=== PATIENT | female | born 1945 | race Hispanic/Latino ===

== ENCOUNTER → 2017-07-09 | Outpatient (CLI) | payer MEDICARE | END | disposition home or self-care (01) | LOC: OIH 10:25 | PROVIDERS: ATTEND Nurse Practitioner Family | DX: R51 Headache (principal) | CPT/HCPCS: 70450 ==

== ENCOUNTER 2018-01-14 12:51 | Inpatient (IN) | payer MEDICARE ==
[~2018-01-14] VITALS: Ht 147.3 cm; Wt 84.9 kg
[2018-01-14 13:39] LABS: BASOPHILS % (AUTO) 0.5 % (0.0-5.0); EOSINOPHILS % (AUTO) 0.9 % (0.0-8.0); LYMPHOCYTES % (AUTO) 11.7 % (21.0-51.0); MEAN CORPUSCULAR HEMOGLOBIN 27.1 pg (27.0-33.0); MEAN CORPUSCULAR HGB CONC 32.4 g/dL (32.0-36.0); MEAN CORPUSCULAR VOLUME 83.6 fL (79-99); NEUTROPHILS % (AUTO) 81.9 % (40.0-77.0); PLATELET COUNT (AUTO) 326 K/uL (130-400); RED BLOOD CELL COUNT(AUTO) 4.79 MIL/uL (4.00-5.50); RED CELL DISTRIBUTION WIDTH 13.8 % (11.0-15.5); WHITE BLOOD COUNT (AUTO) 16.4 K/uL (4.8-10.8)
[2018-01-14 13:46] LABS: CARBON DIOXIDE 29 mmol/L (21-32); CHLORIDE 98 mmol/L (101-111); CREATININE 0.7 mg/dL (0.5-1.5); GLOMERULAR FILTR. RATE CALC 88 mL/min (>60); GLUCOSE,RANDOM 116 mg/dL (70-105); POTASSIUM 3.4 mmol/L (3.5-5.1); SODIUM SERUM 137 mmol/L (136-145); UREA NITROGEN, BLOOD 9 mg/dL (7-18)
[2018-01-14 13:51] LABS: APPEARANCE,URINE Clear (CLEAR); BILIRUBIN,URINE Negative (NEGATIVE); COLOR,URINE Yellow (YELLOW); GLUCOSE, URINE (UA) Negative (NEGATIVE); KETONES,URINE 15 mg/dL (NEGATIVE); LEUKOCYTE ESTERASE ,URINE Negative (NEGATIVE); NITRATE,URINE Negative (NEGATIVE); OCCULT BLOOD,URINE Moderate (NEGATIVE); PH,URINE 6.5 (5.0-8.0); PROTEIN,URINE Negative (NEGATIVE)
[2018-01-14] MEDS ORDERED: SODIUM CHLORIDE 0.9% 1000ML 1,000 ML IV ONE ×2 (13:54→15:05)
[2018-01-14 13:57] LABS: ALANINE AMINOTRANSFERASE 26 U/L (12-78); ASPARTATE AMINOTRANSFERASE 13 U/L (10-37); BILIRUBIN,TOTAL 0.5 mg/dL (0.2-1.0); CREATINE KINASE, TOTAL 28 U/L (21-232); MYOGLOBIN 20 ng/mL (10-92); TOTAL PROTEIN, SERUM 7.9 g/dL (6.0-8.3); TROPONIN I < 0.04 ng/mL (0.00-0.06)
[2018-01-14] MEDS ORDERED: ACETAMINOPHEN 325 MG TAB ONE (13:58)
[2018-01-14 14:04] LABS: INR 1.09 (0.85-1.15); PARTIAL THROMBOPLASTIN TIME 36.1 SEC (26.3-35.5); PROTHROMBIN TIME 11.4 SEC (9.6-11.6)
[2018-01-14 14:07] LABS: BACTERIA,URINE None Seen /HPF (None Seen); SQUAMOUS EPITHELIAL CELL,UR Few /HPF (0-2); WBC,URINE None Seen /HPF (0-1)
[2018-01-14] MEDS ORDERED: IOHEXOL-350 75 ML VIAL IV ONE (14:19)
[2018-01-14] MEDS ORDERED: ONDANSETRON HCL 4 MG/2 ML VIAL ONE (15:05)
[2018-01-14] MEDS ORDERED: MORPHINE SULFATE 2 MG/ML 1ML SYG ONE ×2 (15:06→15:11)
[2018-01-14] MEDS ORDERED: ZOSYN 3.375GM+NS 50ML 50 ML IV ONE (15:28)
[2018-01-14] MEDS ORDERED: SODIUM CHLORIDE 0.9% 50 ML IV ONE (15:28)
[2018-01-14] MEDS ORDERED: ONDANSETRON HCL 4 MG/2 ML VIAL IV PRN (16:00)
[2018-01-14] MEDS ORDERED: ACETAMINOPHEN 650 MG SUPPOSITORY RC PRN (16:00)
[2018-01-14 18:56] VITALS: BP 111/56
[2018-01-14 19:00] VITALS: BP 109/61
[2018-01-14] MEDS ORDERED: TRAM50TA4 PO (19:56)
[2018-01-14] MEDS ORDERED: CIPR-278 PO (19:56)
[2018-01-14] MEDS ORDERED: METR500T4 PO (19:56)
[2018-01-14] MEDS: SODIUM CHLORIDE 0.9% 1000ML 1,000 ML IV SCH (21:38)
[2018-01-14] MEDS: METRONIDAZOLE 500MG/100ML BAG 100 ML IV SCH (21:38)
[2018-01-14] MEDS: FAMOTIDINE/PF 20 MG/2 ML VIAL IV SCH (21:38)
[2018-01-14] MEDS: MORPHINE SULFATE 4 MG/1ML SYG IV PRN (22:26)
[2018-01-14] MEDS: ZOSYN 3.375GM+NS 50ML 50 ML IV SCH (22:29)
[2018-01-14 23:00] VITALS: BP 110/66
[2018-01-15 03:00] VITALS: BP 123/64
[2018-01-15] MEDS: METRONIDAZOLE 500MG/100ML BAG 100 ML IV SCH ×3 (04:51→22:04)
[2018-01-15] MEDS: MORPHINE SULFATE 4 MG/1ML SYG IV PRN ×2 (06:08→22:23)
[2018-01-15] MEDS: ZOSYN 3.375GM+NS 50ML 50 ML IV SCH ×2 (06:09→15:59)
[2018-01-15 06:16] LABS: HEMATOCRIT 34.5 % (36-48); MEAN CORPUSCULAR HEMOGLOBIN 28.1 pg (27.0-33.0); MEAN CORPUSCULAR HGB CONC 33.7 g/dL (32.0-36.0); MEAN CORPUSCULAR VOLUME 83.4 fL (79-99); PLATELET COUNT (AUTO) 346 K/uL (130-400); RED BLOOD CELL COUNT(AUTO) 4.14 MIL/uL (4.00-5.50); RED CELL DISTRIBUTION WIDTH 14.3 % (11.0-15.5); WHITE BLOOD COUNT (AUTO) 10.8 K/uL (4.8-10.8)
[2018-01-15 06:30] LABS: CREATININE 0.7 mg/dL (0.5-1.5); POTASSIUM 3.6 mmol/L (3.5-5.1)
[2018-01-15 07:30] VITALS: BP 108/57
[2018-01-15] MEDS: FAMOTIDINE/PF 20 MG/2 ML VIAL IV SCH ×2 (09:36→22:17)
[2018-01-15 11:00] VITALS: BP 113/56
[2018-01-15 16:00] VITALS: BP 123/53
[2018-01-15] MEDS: FLUCONAZOLE 200 MG/NS 100 ML 100 ML IV SCH (17:00)
[2018-01-15 19:12] VITALS: BP 109/56
[2018-01-15] MEDS: SODIUM CHLORIDE 0.9% 1000ML 1,000 ML IV SCH (22:04)
[2018-01-16 00:15] VITALS: BP 127/71
[2018-01-16] MEDS: ZOSYN 3.375GM+NS 50ML 50 ML IV SCH ×4 (01:05→22:49)
[2018-01-16 04:15] VITALS: BP 125/66
[2018-01-16] MEDS: METRONIDAZOLE 500MG/100ML BAG 100 ML IV SCH ×3 (05:57→22:49)
[2018-01-16 07:30] VITALS: BP 119/57
[2018-01-16] MEDS: FAMOTIDINE/PF 20 MG/2 ML VIAL IV SCH ×2 (08:25→22:49)
[2018-01-16 11:00] VITALS: BP 108/50
[2018-01-16] MEDS: FLUCONAZOLE 200 MG/NS 100 ML 100 ML IV SCH (15:45)
[2018-01-16 16:00] VITALS: BP 138/58
[2018-01-16] MEDS: SODIUM CHLORIDE 0.9% 1000ML 1,000 ML IV SCH (16:28)
[2018-01-16 19:30] VITALS: BP 109/57
[2018-01-16] MEDS: MORPHINE SULFATE 4 MG/1ML SYG IV PRN (22:50)
[2018-01-17 00:28] VITALS: BP 122/72
[2018-01-17 04:25] VITALS: BP 121/70
[2018-01-17] MEDS: ZOSYN 3.375GM+NS 50ML 50 ML IV SCH ×3 (05:11→21:30)
[2018-01-17] MEDS: METRONIDAZOLE 500MG/100ML BAG 100 ML IV SCH ×3 (05:11→20:48)
[2018-01-17] MEDS: SODIUM CHLORIDE 0.9% 1000ML 1,000 ML IV SCH (05:14)
[2018-01-17 05:20] LABS: HEMATOCRIT 38.9 % (36-48); MEAN CORPUSCULAR HEMOGLOBIN 27.4 pg (27.0-33.0); MEAN CORPUSCULAR HGB CONC 32.8 g/dL (32.0-36.0); MEAN CORPUSCULAR VOLUME 83.5 fL (79-99); PLATELET COUNT (AUTO) 426 K/uL (130-400); RED BLOOD CELL COUNT(AUTO) 4.66 MIL/uL (4.00-5.50); RED CELL DISTRIBUTION WIDTH 13.6 % (11.0-15.5); WHITE BLOOD COUNT (AUTO) 12.3 K/uL (4.8-10.8)
[2018-01-17 05:40] LABS: ALBUMIN 2.9 g/dL (3.5-5.0); BILIRUBIN,TOTAL 0.6 mg/dL (0.2-1.0); CREATININE 0.7 mg/dL (0.5-1.5); POTASSIUM 3.7 mmol/L (3.5-5.1); TOTAL PROTEIN, SERUM 7.6 g/dL (6.0-8.3)
[2018-01-17] MEDS ORDERED: DIATR MEGLU/DIATRIZOATE SODIUM 30 ML BOTTLE ONE (07:15)
[2018-01-17] MEDS: FAMOTIDINE/PF 20 MG/2 ML VIAL IV SCH ×2 (07:59→20:48)
[2018-01-17 08:22] VITALS: BP 124/63
[2018-01-17] MEDS ORDERED: IOHEXOL-350 75 ML VIAL IV ONE (09:58)
[2018-01-17 11:17] VITALS: BP 132/67
[2018-01-17] MEDS: DEXTROSE 5 % AND 0.9 % NACL 1,000 ML IV SCH ×2 (12:23→20:45)
[2018-01-17] MEDS: FLUCONAZOLE 200 MG/NS 100 ML 100 ML IV SCH (14:39)
[2018-01-17] MEDS: MORPHINE SULFATE 4 MG/1ML SYG IV PRN (14:39)
[2018-01-17 16:20] VITALS: BP 128/64
[2018-01-17 20:00] VITALS: BP 112/57
[2018-01-18] VITALS: BP 117/64
[2018-01-18] MEDS: DEXTROSE 5 % AND 0.9 % NACL 1,000 ML IV SCH ×3 (00:20→12:14)
[2018-01-18 03:15] VITALS: BP 119/71
[2018-01-18] MEDS: METRONIDAZOLE 500MG/100ML BAG 100 ML IV SCH ×3 (04:21→21:18)
[2018-01-18] MEDS: ZOSYN 3.375GM+NS 50ML 50 ML IV SCH ×3 (05:04→23:13)
[2018-01-18 05:12] LABS: HEMATOCRIT 34.3 % (36-48); MEAN CORPUSCULAR HEMOGLOBIN 28.2 pg (27.0-33.0); MEAN CORPUSCULAR HGB CONC 34.2 g/dL (32.0-36.0); MEAN CORPUSCULAR VOLUME 82.6 fL (79-99); PLATELET COUNT (AUTO) 363 K/uL (130-400); RED BLOOD CELL COUNT(AUTO) 4.16 MIL/uL (4.00-5.50); RED CELL DISTRIBUTION WIDTH 13.7 % (11.0-15.5); WHITE BLOOD COUNT (AUTO) 8.3 K/uL (4.8-10.8)
[2018-01-18 05:25] LABS: CREATININE 0.7 mg/dL (0.5-1.5); POTASSIUM 3.2 mmol/L (3.5-5.1)
[2018-01-18] MEDS ORDERED: LIDOCAINE HCL-MPF 1% 2ML VIAL IVP PRN (05:45)
[2018-01-18] MEDS ORDERED: POTASSIUM CHLORIDE 10% ELIXIR 20 MEQ/15 ML UDCUP PO PRN (05:45)
[2018-01-18] MEDS ORDERED: POTASSIUM CHLORIDE 20MEQ/100ML 100 ML IV PRN (05:45)
[2018-01-18] MEDS ORDERED: POTASSIUM CHLORIDE 20 MEQ ERTAB PO ONE (05:58)
[2018-01-18 08:00] VITALS: BP 114/45
[2018-01-18] MEDS: ENOXAPARIN SODIUM 40 MG/0.4 ML SYRINGE SQ SCH (08:02)
[2018-01-18] MEDS: FAMOTIDINE/PF 20 MG/2 ML VIAL IV SCH ×2 (08:02→21:18)
[2018-01-18] MEDS: POTASSIUM CHLORIDE 20 MEQ ERTAB PO PRN ×2 (08:03→21:20)
[2018-01-18 12:00] VITALS: BP 130/80
[2018-01-18] MEDS: FLUCONAZOLE 200 MG/NS 100 ML 100 ML IV SCH (14:02)
[2018-01-18 16:00] VITALS: BP 124/64
[2018-01-18 20:00] VITALS: BP 116/61
[2018-01-18] MEDS: MORPHINE SULFATE 4 MG/1ML SYG IV PRN (23:13)
[2018-01-19] VITALS (8 sets, daily range): BP systolic 100–120; BP diastolic 43–63
[2018-01-19] MEDS: DEXTROSE 5 % AND 0.9 % NACL 1,000 ML IV SCH ×3 (02:20→22:41)
[2018-01-19] MEDS: POTASSIUM CHLORIDE 20 MEQ ERTAB PO PRN ×3 (02:20→08:29)
[2018-01-19] MEDS: METRONIDAZOLE 500MG/100ML BAG 100 ML IV SCH ×3 (05:37→20:48)
[2018-01-19 05:54] LABS: HEMATOCRIT 36.7 % (36-48); MEAN CORPUSCULAR HEMOGLOBIN 27.6 pg (27.0-33.0); MEAN CORPUSCULAR HGB CONC 33.4 g/dL (32.0-36.0); MEAN CORPUSCULAR VOLUME 82.7 fL (79-99); PLATELET COUNT (AUTO) 456 K/uL (130-400); RED BLOOD CELL COUNT(AUTO) 4.44 MIL/uL (4.00-5.50); RED CELL DISTRIBUTION WIDTH 13.7 % (11.0-15.5); WHITE BLOOD COUNT (AUTO) 7.9 K/uL (4.8-10.8)
[2018-01-19 06:07] LABS: CREATININE 0.7 mg/dL (0.5-1.5); POTASSIUM 3.2 mmol/L (3.5-5.1)
[2018-01-19] MEDS: ZOSYN 3.375GM+NS 50ML 50 ML IV SCH ×3 (06:29→20:49)
[2018-01-19] MEDS: FAMOTIDINE/PF 20 MG/2 ML VIAL IV SCH ×2 (08:30→20:48)
[2018-01-19] MEDS: ENOXAPARIN SODIUM 40 MG/0.4 ML SYRINGE SQ SCH (08:30)
[2018-01-19] MEDS: FLUCONAZOLE 200 MG/NS 100 ML 100 ML IV SCH (12:48)
[2018-01-19] MEDS: MORPHINE SULFATE 4 MG/1ML SYG IV PRN (20:48)
[2018-01-20 03:11] VITALS: BP 133/48
[2018-01-20] MEDS: METRONIDAZOLE 500MG/100ML BAG 100 ML IV SCH ×3 (05:32→20:59)
[2018-01-20] MEDS: ZOSYN 3.375GM+NS 50ML 50 ML IV SCH ×3 (05:32→23:13)
[2018-01-20 06:14] LABS: HEMATOCRIT 37.5 % (36-48); MEAN CORPUSCULAR HEMOGLOBIN 27.9 pg (27.0-33.0); MEAN CORPUSCULAR HGB CONC 33.5 g/dL (32.0-36.0); PLATELET COUNT (AUTO) 446 K/uL (130-400); RED BLOOD CELL COUNT(AUTO) 4.52 MIL/uL (4.00-5.50); RED CELL DISTRIBUTION WIDTH 13.8 % (11.0-15.5); WHITE BLOOD COUNT (AUTO) 6.2 K/uL (4.8-10.8)
[2018-01-20 06:21] LABS: CREATININE 0.7 mg/dL (0.5-1.5); POTASSIUM 3.9 mmol/L (3.5-5.1)
[2018-01-20 07:00] VITALS: BP 100/59
[2018-01-20] MEDS: ENOXAPARIN SODIUM 40 MG/0.4 ML SYRINGE SQ SCH (08:41)
[2018-01-20] MEDS: FAMOTIDINE/PF 20 MG/2 ML VIAL IV SCH ×2 (08:44→20:59)
[2018-01-20 11:00] VITALS: BP 111/68
[2018-01-20] MEDS ORDERED: FLUC200T8 PO (11:57)
[2018-01-20] MEDS ORDERED: AMOX-429 PO (11:57)
[2018-01-20] MEDS ORDERED: IOHEXOL-350 75 ML VIAL IV ONE (12:47)
[2018-01-20] MEDS: FLUCONAZOLE 200 MG/NS 100 ML 100 ML IV SCH (13:49)
[2018-01-20 16:00] VITALS: BP 128/73
[2018-01-20 20:00] VITALS: BP 132/74
[2018-01-21 00:08] VITALS: BP 140/70
[2018-01-21 04:00] VITALS: BP 128/74
[2018-01-21 04:48] LABS: HEMATOCRIT 37.1 % (36-48); MEAN CORPUSCULAR VOLUME 82.2 fL (79-99); NUCLEATED RED BLOOD CELLS 0.1 % (0.0-0.19); PLATELET COUNT (AUTO) 436 K/uL (130-400); RED BLOOD CELL COUNT(AUTO) 4.52 MIL/uL (4.00-5.50); RED CELL DISTRIBUTION WIDTH 13.7 % (11.0-15.5); WHITE BLOOD COUNT (AUTO) 8.4 K/uL (4.8-10.8)
[2018-01-21 04:54] LABS: CREATININE 0.9 mg/dL (0.5-1.5); POTASSIUM 3.5 mmol/L (3.5-5.1)
[2018-01-21] MEDS: METRONIDAZOLE 500MG/100ML BAG 100 ML IV SCH (06:23)
[2018-01-21 07:00] VITALS: BP 118/76
[2018-01-21] MEDS: POTASSIUM CHLORIDE 20 MEQ ERTAB PO PRN (07:02)
[2018-01-21] MEDS: ZOSYN 3.375GM+NS 50ML 50 ML IV SCH (07:02)
[2018-01-21] MEDS: FAMOTIDINE/PF 20 MG/2 ML VIAL IV SCH (09:46)
[2018-01-21] MEDS: ENOXAPARIN SODIUM 40 MG/0.4 ML SYRINGE SQ SCH (09:46)
== END 2018-01-21 12:15 | disposition home or self-care (01) | DRG 871 ==
LOC: EDH 12:51 → EDHIP 16:00 → 3CH 18:28
PROVIDERS: ADMIT Hospitalist; ATTEND Hospitalist
DX: A41.9 Sepsis, unspecified organism (principal); K65.1 Peritoneal abscess; K57.20 Diverticulitis of large intestine with perforation and abscess without bleeding; E66.01 Morbid (severe) obesity due to excess calories; Z68.39 Body mass index [BMI] 39.0-39.9, adult; Z90.721 Acquired absence of ovaries, unilateral; Z80.0 Family history of malignant neoplasm of digestive organs; Z83.3 Family history of diabetes mellitus
CPT/HCPCS: 36415; 71045; 74177; 74178; 80048; 80053; 81001; 82270; 82550; 83605; 83690; 83874; 84484; 85025; 85027; 85610; 85730; 87040; 87088; 93005; 99291; J1450; J1650; J2270; J2405; J2543; J3490; J7030; J7042; Q9963; Q9967

== ENCOUNTER → 2021-11-30 | Outpatient (CLI) | payer OTHER, MEDICARE ==
[~2021-11-30] MED LIST: AMOX-429 PO; CIPR-278 PO; FLUC200T12 PO; METR-172 PO; TRAM50TA4 PO
== END | disposition home or self-care (01) ==
LOC: OIH 12:58
PROVIDERS: ATTEND Internal Medicine Cardiovascular Disease
DX: I87.2 Venous insufficiency (chronic) (peripheral) (principal); I73.9 Peripheral vascular disease, unspecified
CPT/HCPCS: 93925; 93970

== ENCOUNTER → 2022-12-15 | Outpatient (CLI) | payer OTHER, MEDICARE | END | disposition home or self-care (01) | LOC: SHCH 10:18 | PROVIDERS: ATTEND Internal Medicine Cardiovascular Disease | DX: I87.2 Venous insufficiency (chronic) (peripheral) (principal); I87.1 Compression of vein | CPT/HCPCS: 93970 ==

== ENCOUNTER → 2023-01-20 | Outpatient (CLI) | payer OTHER, MEDICARE ==
[2023-01-20 22:19] VITALS: PULSE 86; RESP 16
[2023-01-20 23:00] VITALS: PULSE 84; RESP 18
[2023-01-20 23:30] VITALS: PULSE 82; RESP 18
[2023-01-21] VITALS (9 sets, daily range): PULSE 78–86; RESP 8–20
== END | disposition home or self-care (01) ==
LOC: SLP 10:00
PROVIDERS: ATTEND Nurse Practitioner Family
DX: G47.33 Obstructive sleep apnea (adult) (pediatric) (principal)
CPT/HCPCS: 95810

== ENCOUNTER → 2023-03-04 | Outpatient (CLI) | payer OTHER, MEDICARE | END | disposition home or self-care (01) | LOC: RAH 09:08 | PROVIDERS: ATTEND Nurse Practitioner Family | DX: K76.9 Liver disease, unspecified (principal); R10.9 Unspecified abdominal pain; Z90.49 Acquired absence of other specified parts of digestive tract | CPT/HCPCS: 76700 ==

== ENCOUNTER → 2023-07-01 | Outpatient (CLI) | payer OTHER, MEDICARE | END | disposition home or self-care (01) | LOC: SHCH 13:52 | PROVIDERS: ATTEND Internal Medicine Cardiovascular Disease | DX: I11.9 Hypertensive heart disease without heart failure (principal); R07.9 Chest pain, unspecified | CPT/HCPCS: 93306 ==